=== PATIENT | male | born 1995 | race Caucasian/White ===

== ENCOUNTER 2017-01-03 00:30 | Emergency (ER) | payer MEDICAID ==
[2017-01-03 01:07] LABS: Hematocrit 43.1 % (42.0-52.0); Hemoglobin 14.4 gm/dL (13.5-18.0); Mean Cell Volume 82.7 fl (78-100); Mean Corpuscular Hemoglobin 27.6 pg (27-31); Mean Corpuscular Hgb Conc 33.4 g/dl (32-36); Mean Platelet Volume 10.4 fl (6.0-9.5); Neutrophil # 11.7 K/mm3 (1.3-6.0); Neutrophil % 74.9 % (42-75.0); Platelet Count 291 K/mm3 (150-450); Red Blood Count 5.21 M/mm3 (4.7-6.0); Red Cell Distribution Width 12.5 % (11.5-14.0); White Blood Count 15.6 K/mm3 (4.0-10.5)
[2017-01-03 01:22] LABS: Anion Gap 13.6 mmol/L (6.8-13.8); BUN/Creatinine Ratio 8.8 (9.0-21.6); Bilirubin, Total 0.2 mg/dL (0.0-1.1); Ca. Corrected For Albumin 8.8 mg/dL (8.4-10.2); Calcium * 9.1 mg/dL (7.9-10.9); Carbon Dioxide 26.1 mmol/L (24-32.6); Potassium 3.7 mmol/L (3.4-4.6); Total Protein 8.5 gm/dL (6.2-8.2)
[2017-01-03] MEDS ORDERED: DIATRIZOATE MEGLU/DIATRIZO SOD 30 ML BTL PO ONE (01:32)
[2017-01-03] MEDS ORDERED: DIATRIZOATE MEGLU/DIATRIZO SOD 30 ML BTL ONE (01:33)
--- NOTE | 2017-01-03 01:49 | ERNOTE ---
Abdominal HPI - General Chief Complaint: Abdominal Pain Time Seen by Provider: 01/03/17 00:48 Source: patient Exam Limitations: no limitations - Immun/Allergies/Home Medications Immunizatons: IMMUNIZATION HX Immunizations Up to Date Yes History of Influenza Vaccine No Allergies/Adverse Reactions: Allergies amoxicillin [Amoxicillin] Allergy (Verified 02/05/14 14:16) Penicillins Allergy (Verified 02/05/14 14:16) Hives Home Medications: HOME MEDICATIONS Omeprazole [Prilosec Generic] 20 mg PO DAILY 02/05/14 [Last Taken 02/05/14] - History of Present Illness Narrative: Impression presents for abdominal pain in the period umbilical region which began at 8:30 PM on 01/02/2017. Patient denies any trauma to the region. Patient denies any nausea however admits to having some diarrhea. Patient states that he has had this problem before but "never this bad" having some bloody stools however states "I think I have a hemorrhoid" he denies any fevers chills nausea or vomiting. This patient states that initially he had an inability to have a bowel movement so he took a large amount of milk of magnesia now he has diarrhea in addition to abdominal pain. Review of Systems - Review of Systems Constitutional: Present: no symptoms reported EYE: Present: no symptoms reported ENT: Present: no symptoms reported Respiratory: Present: no symptoms reported Cardiology: Present: no symptoms reported Gastrointestinal/Abdominal: Present: See HPI - Patient's Past Medical History Patient History - Medical: GERD Patient History - Cardiac/Respiratory: No pertinent hx Patient History - Cancer: No Hx of Cancer Patient History - Surgical Procedures: No surgical history Patient History - Other: None - Social History Living Situations: parents Abuse History: No History of abuse Psych History: No pertinent hx Smoking Status: Never smoker Alcohol Use: rarely Drug Use: none - Immunizations Immunizations Up to Date: Yes History of Influenza Vaccine: No Physical Exam - Physical Exam General Appearance: Present: wd/wn, alert, no apparent distress Neck: Present: normal inspection, nontender Respiratory: Present: no respiratory distress, normal breath sounds, no accessory muscle use, chest nontender, lungs clear Cardiovascular/Chest: Present: regular rate, rhythm, no murmur, normal peripheral pulses Gastrointestinal/Abdominal: Present: normal bowel sounds, other - patient has some diffuse abdominal tenderness mostly around the periumbilical region and diffusely tender when I do direct palpation but no rebound tenderness no peritoneal signs and increased bowel sounds. Extremity Exam: Present: normal inspection Neurological Exam: Present: alert, oriented, normal mood/affect, no motor/ sensory deficits ED Progress - Results and Orders Patient's Lab Results:: I have reviewed the patient's lab results. - Vital Signs Patient's Vital Signs:: I have reviewed the patient's vital signs. Vital Signs: Vital Signs 01/03/17 01/03/17 00:33 01:38 Temperature 36.3 C L 36.5 C Pulse Rate 64 78 Respiratory 18 16 Rate Blood Pressure 160/81 153/76 O2 Sat by Pulse 100 99 Oximetry - CT/Ultrasound CT/Ultrasound Narrative: T scan was discussed with Dr. Kuo - Progress/Reassessment Chief Complaint: Abdominal Pain Plan - Plan Plan: Patient's white count is elevated at 15 however he does not have fevers he does not have nausea his symptoms began with constipation following which she took a large amount of milk of magnesia and now he has diarrhea. The CT scan does not show colitis does not show appendicitis and basically it shows that only contrast is in the bowel this is consistent with rapid transit through the bowel which is consistent with the reaction to the milk of magnesia. Liter of fluids will be given to the patient and patient will be discharged home advised not to take any more milk of magnesia and to start with a BRAT diet. He is to come back to the emergency room in case of continued diarrhea in the next 12 hours. Departure - Departure Clinical Impression: Diarrhea Qualifiers: Diarrhea type: unspecified type Qualified Code(s): R19.7 - Diarrhea, unspecified Disposition: Home self-care Condition: Good Instructions: Abdominal Pain, Adult, [id number] Additional Instructions: Please do not take any more milk of magnesia and when you get home eat bananas rice applesauce or toast. Return to the ER if you are still having diarrhea in 12 hours Referrals: Chidi Pastrana MD [Primary Care Provider] -
[2017-01-03] MEDS ORDERED: NORMAL SALINE 1,000 ML IV ONE (03:05)
[2017-01-03] MEDS ORDERED: ACETAMINOPHEN 325 MG TABLET PO ONE (04:27)
[2017-01-03] MEDS ORDERED: ACETAMINOPHEN 325 MG TABLET ONE (04:29)
[2017-01-03 04:51] VITALS: BP 141/79
== END 2017-01-03 04:49 | disposition home or self-care (01) ==
LOC: ER 00:30
DX: R19.7 Diarrhea, unspecified (principal); L30.4 Erythema intertrigo